=== PATIENT | female | born 1955 | race Caucasian/White ===

== ENCOUNTER 2017-04-01 14:21 | Outpatient (CLI) | payer OTHER ==
--- NOTE | 2017-04-01 15:40 | Diagnostic Imaging Report ---
SANDOVAL DURAN [facility] [id number] [facility] [address] [address] Report Submission Date: Apr 01, 2017 3:23:36 PM CUSTOMER CARE MANAGER Patient Study Name: ROCCO COELHO Date: Apr 01, 2017 2:38:54 PM CUSTOMER CARE MANAGER Modality Type: US Gender: F Description: ABDOMEN COMPLETE : 53 Institution: [facility] Physician: SANDOVAL DURAN Examination: Ultrasound abdomen History: Abdominal discomfort Findings: Sonographic evaluation of the abdomen demonstrates a gallbladder without stones or sludge. Gallbladder wall measures 2.3 mm. Common bile duct measures 2.7 mm. No intrahepatic biliary dilation. Liver demonstrates normal homogeneous echogenicity. No mass. Normal flow on color analysis. Normal Doppler waveforms. Right kidney measures 10.2 cm in length. Left kidney measures 9.5 cm in length. Normal cortical margins. No hydronephrosis. Pancreatic region, spleen, and abdominal aorta are without gross irregularity. Impression: No gallstones or obstruction. Unremarkable abdominal ultrasound. Electronically signed on Apr 01, 2017 3:23:36 PM CUSTOMER CARE MANAGER by: Smith LEE
== END 2017-04-01 14:22 ==
LOC: RAD 14:21
PROVIDERS: ATTEND Family Medicine
DX: R10.9 Unspecified abdominal pain (principal)
CPT/HCPCS: 76700